=== PATIENT | male | born 1965 | race Caucasian/White ===

== ENCOUNTER → 2023-09-08 | Outpatient (CLI) | payer BC | END | disposition home or self-care (01) | LOC: RADCTMAIN 15:36 | PROVIDERS: ATTEND Orthopaedic Surgery | DX: Z53.9 Procedure and treatment not carried out, unspecified reason (principal) ==

== ENCOUNTER → 2023-11-26 | Outpatient (CLI) | payer BC ==
--- NOTE | 2023-11-26 13:56 | CT ---
EXAMINATION TYPE: CT left knee - [facility] Protocol DATE OF EXAM: 11/26/2023 COMPARISON: NONE HISTORY: LEFT KNEE KAREN PROTOCOL. Primary osteoarthritis CT DLP: 825 mGycm. Automated Exposure Control for Dose Reduction was Utilized. TECHNIQUE: CT scan of the left lower extremity is performed without IV contrast. FINDINGS: Exam is for surgical planning and not for diagnostic purposes. No suspicious incidental fin ding in the pelvis. Moderate to severe narrowing of medial tibiofemoral compartment and the left kidn ey is confirmed. Slight genu varum positioning noted. No suspicious incidental finding in the ankles. IMPRESSION: As above.
== END | disposition home or self-care (01) ==
LOC: RADCTMAIN 12:42
PROVIDERS: ATTEND Orthopaedic Surgery
DX: M17.12 Unilateral primary osteoarthritis, left knee (principal); Z47.1 Aftercare following joint replacement surgery; M25.561 Pain in right knee; Z96.651 Presence of right artificial knee joint